=== PATIENT | male | born 1955 | race Caucasian/White ===

== ENCOUNTER → 2019-03-19 | Outpatient (CLI) | payer BC ==
[2014-03-29 17:00] VITALS: BP 160/81
[~2019-03-19] MED LIST: ATOR10TA60 PO; DICL1TAB50 PO; GADOTERATE 5 MMOL/10ML VIAL. IVP ONE; HYDR-2765 PO; METF500T16 PO
--- NOTE | 2019-03-19 11:10 | KCIC ---
MRI Cervical Spine with and without contrast History: Neck pain, left radiculopathy, previous surgery, numbness in left hand, pain in the left arm Technique: Multiplanar, multi sequential pre and postcontrast MR imaging was performed of the cervical spine. Comparison: None Findings: Cervical cord caliber is within normal limits without focal signal abnormality. There is anterior cervical fusion hardware C4-C6 with interbody fusion C4-5 and C5-6. There is no significant marrow edema. Cervical vertebral body stature is maintained. AP alignment is within normal limits. There is straightening of the cervical spine. There is [id number] C3-4 degenerative disc disease. There is very mild levoscoliosis of the cervical spine. C2-C3: There is very minimal disc osteophyte complex. Central canal is minimally narrowed about 8 mm in part on developmental basis. Left neural foramen is adequate. Facet and uncovertebral degenerative change contributes to fairly severe narrowing of the right neural foramen. C3-4: There has been posterior decompression. There are posterior osteophytes slightly indenting the ventral thecal sac greater in the left paracentral region, effacement of ventral subarachnoid space greater in the left paracentral region. AP thecal sac centrally is minimally narrowed about 9 to 10 mm. Uncovertebral osteophytes contribute to moderate to severe narrowing of the right neural foramen, left neural foramen minimally narrowed. C4-C5: There has been posterior decompression. There are posterior osteophytes slightly indenting the ventral thecal sac, central canal adequate about 11 mm. There is facet degenerative change greater on the right. There is very minimal narrowing of the left neural foramen, right neural foramen adequate. C5-C6: There is right greater than left facet degenerative change. Central canal is adequate about 11 mm. Neural foramina are overall adequate. C6-C7: There is fairly severe facet degenerative change bilaterally. There is minimal disc osteophyte complex. Central canal is minimally narrowed about 8 mm. There is uncovertebral degenerative change bilaterally. There is severe narrowing of the left neural foramen, moderate to severe narrowing on the right. C7-T1: There is very minimal disc osteophyte complex. Central canal is adequate about 11 mm. There is bilateral facet hypertrophic change. There is also uncovertebral degenerative change. There is fairly severe neural foramina compromise bilaterally. Impression: 1. There is somewhat diffuse narrowing of the cervical spinal canal on a developmental basis. There is central canal stenosis on the order of 8 mm at C2-3 and C6-7 and to lesser degree at C3-4. 2. Multilevel facet and uncovertebral change results in multilevel neural foramina compromise more significant narrowing bilaterally at C6-7 and C7-T1 and on the right at C3-4 and C2-3. 3. There is interbody fusion at C4-5 and C5-6. There is [id number] C3-4 degenerative disc disease. Electronically signed by: Basilio Gregg MD (03/19/2019 11:07 AM) [id number]
== END | disposition home or self-care (01) ==
LOC: KCIC MRI 09:18
PROVIDERS: ATTEND Family Medicine
DX: M48.02 Spinal stenosis, cervical region (principal); M50.11 Cervical disc disorder with radiculopathy, high cervical region; M47.22 Other spondylosis with radiculopathy, cervical region; M47.814 Spondylosis without myelopathy or radiculopathy, thoracic region; M25.78 Osteophyte, vertebrae; M89.38 Hypertrophy of bone, other site; Z98.1 Arthrodesis status
CPT/HCPCS: 72156; 82565; A9575

== ENCOUNTER → 2020-03-10 | Outpatient (CLI) | payer BC ==
[2014-03-29 17:00] VITALS: BP 160/81
[~2020-03-10] MED LIST changes: -GADOTERATE 5 MMOL/10ML VIAL. IVP ONE
--- NOTE | 2020-03-10 09:43 | RAD ---
SCAN OF ABDOMINAL AORTA History:Reason: SCREENING/ HX SMOKER / Spl. Instructions: / History: Comparison: None Technique: Sonographic examination of the abdominal aorta was performed and multiple static images were obtained. Abdominal aorta proximally measures 2.1 cm. Although not well seen due to overlying bowel gas Mid aspect measures 2.6 cm. Distal aspect measures 1.3 cm. Atheromatous plaque seen throughout the aorta. Impression: 1. Atheromatous plaque throughout the ectatic infrarenal abdominal aorta. No abdominal aortic aneurysm. Electronically signed by: Dimitri Hamilton DO (03/10/2020 9:40 AM) [id number]
== END ==
LOC: US 07:07
PROVIDERS: ATTEND Family Medicine
DX: Z00.01 Encounter for general adult medical examination with abnormal findings (principal); I70.0 Atherosclerosis of aorta; Z87.891 Personal history of nicotine dependence
CPT/HCPCS: 76770

== ENCOUNTER → 2021-04-13 | Outpatient (CLI) | payer MEDICARE ==
[2014-03-29 17:00] VITALS: BP 160/81
--- NOTE | 2021-04-14 11:55 | KCIC ---
EXAM: XR SHOULDER_RIGHT 2+ VIEWS 04/13/2021 3:52 PM CLINICAL INDICATION: Chronic right shoulder pain, increasing since yesterday while bowling. COMPARISON: None TECHNIQUE: 3 views of the right shoulder FINDINGS: No acute fracture. Alignment is normal. There is mild to moderate acromioclavicular degene rative joint disease. The glenohumeral joint is maintained. The subacromial space is preserved. IMPRESSION: No acute osseous abnormality. Electronically signed by: Vandana Ramírez MD (04/14/2021 11:53 AM) [id number]
== END ==
LOC: KCIC 15:27
PROVIDERS: ATTEND Family Medicine
DX: M19.011 Primary osteoarthritis, right shoulder (principal); R53.1 Weakness
CPT/HCPCS: 73030

== ENCOUNTER → 2021-05-04 | Outpatient (CLI) | payer MEDICARE ==
[2014-03-29 17:00] VITALS: BP 160/81
--- NOTE | 2021-05-04 14:54 | KCIC ---
EXAM: MRI right shoulder DATE: 05/04/2021 1:00 PM COMPARISON: None INDICATION: RIGHT SHOULDER PAIN, JOINT STIFFNESS- Rt shoulder pain since an injury bowling 3 weeks ag o. TECHNIQUE: Multiplanar, multisequence MRI of the right shoulder was performed without contrast. FINDINGS: Bulky AC joint osteophytes are seen. Small subacromial-subdeltoid bursal distention, bursitis. No lat eral downsloping of the distal acromion. Type I acromion. No os acromiale. Partial-thickness articular sided tear of the supraspinatus and infraspinatus tendon measuring approx imately 4 cm in AP dimension with up to 50 percent tendon thickness. Focal full-thickness component a t the anteriormost aspect of the supraspinatus tendon. Supraspinatus and infraspinatus tendinosis. Th e bulky a.c. osteophytes result in deformity of the supraspinatus myotendinous junction. Short segmen t partial-thickness articular sided tear of the subscapularis tendon involving approximately 50 perce nt tendon thickness. Mild fatty atrophy of the subscapularis muscle belly otherwise normal rotator cu ff muscle signal and bulk. There is thickening of the extra-articular portion long head biceps tendon. Intra-articular portion o f the long head biceps tendon is not seen, possibly from tenodesis or tenotomy. No discrete labral tear. No fracture or osteonecrosis. Chondral thinning humeral head. IMPRESSION: 1. Focal full-thickness tear of the anterior portion of the supraspinatus tendon. Partial-thickness articular sided tear of the supraspinatus and infraspinatus tendon involves 50 percent tendon thickne ss, measuring approximately 4 cm in AP dimension. 2. Partial-thickness articular sided tear of the superior portion of the subscapularis tendon involv ing 50 percent tendon thickness. 3. AC joint degenerative changes with bulky inferior projecting osteophytes. Electronically signed by: Joel Forde MD (05/04/2021 2:52 PM) [id number]
== END ==
LOC: KCIC MRI 13:06
PROVIDERS: ATTEND Family Medicine
DX: M75.121 Complete rotator cuff tear or rupture of right shoulder, not specified as traumatic (principal); M19.011 Primary osteoarthritis, right shoulder; M75.51 Bursitis of right shoulder; M25.60 Stiffness of unspecified joint, not elsewhere classified
CPT/HCPCS: 73221